=== PATIENT | female | born 1960 | race African-American/Black ===

== ENCOUNTER 2017-05-30 05:27 | Inpatient (IN) ==
[2017-05-30] MEDS ORDERED: SODIUM CHLORIDE 0.9% 1,000 ML IV STA (05:54)
[2017-05-30 06:02] LABS: Basophils # 0.1 10*3/uL (0.0-0.2); Basophils % 0.2 % (0.0-0.8); Hematocrit 38.6 VOL% (35.7-47.0); Hemoglobin 13.5 GM/DL (12.0-16.0); Immature Granulocytes % 0.7 %; Immature Granulocytes Absolute 0.14 #; Lymphocytes # 0.5 10*3/uL (1.4-4.0); Lymphocytes % 2.6 % (21.3-54.2); Mean Corpuscular Hemoglobin 34 PG (27-34); Mean Corpuscular Volume 98.2 FL (87-102); Mean Platelet Volume 10.3 FL (9.6-12.0); Monocytes # 1.4 10*3/uL (0.11-0.8); Monocytes % 6.7 % (1.7-12.7); Neutrophils # 18.4 10*3/uL (1.4-7.4); Neutrophils % 89.8 % (38.7-73.9); Platelet Count 209 T/CUMM (130-400); Red Blood Count 3.93 MC/CUMM (3.8-5.5); Red Cell Distribution Width 11.9 % (9.3-17.3); White Blood Count 20.5 T/CUMM (4-12)
[2017-05-30 06:05] LABS: Apearance,Urine Slightly Hazy (Clear); Bilirubin,Urine Negative (Negative); Blood, Urine Negative (Negative); Glucose,Urine (UA) 150 mg/dL (Negative); Ketones,Urine Negative (Negative); Mucus,Urine Occasional /LPF (Occasional); Nitrite,Urine Negative (Negative); Protein,Urine Negative; RBC,Urine 4 /HPF (0-4); Squamous Epithelial Cell,Urine Occasional /HPF (0-10); Urine Color Straw (Yellow); Urine Specific Gravity 1.011 (1.001-1.035); Urine Urobilinogen < 2.0 EU/DL (0.2-1.0); WBC,Urine 121 /HPF (0-6)
[2017-05-30] MEDS ORDERED: KETOROLAC 30 MG/1 ML VIAL IV STA (06:20)
[2017-05-30] MEDS ORDERED: ONDANSETRON 4 MG/2 ML VIAL IV STA (06:20)
[2017-05-30] MEDS ORDERED: HYDROmorphone 2 MG/1 ML VIAL IV STA (06:20)
[2017-05-30] MEDS ORDERED: ONDANSETRON 4 MG/2 ML VIAL ONE ×2 (06:23→14:26)
[2017-05-30] MEDS ORDERED: HYDROmorphone 2 MG/1 ML VIAL ONE (06:23)
[2017-05-30] MEDS ORDERED: KETOROLAC 30 MG/1 ML VIAL ONE ×2 (06:23→14:26)
[2017-05-30 06:25] LABS: Albumin 4.1 G/DL (3.4-5.0); Bilirubin,Total 0.7 MG/DL (0.2-1.0); Calcium 9.4 MG/DL (8.5-10.1); Osmolality,Calculated 280.7 MOS/KG (273-304); Potassium 4.1 MMOL/L (3.5-5.1); Total Protein 7.4 G/DL (6.4-8.3)
[2017-05-30] MEDS ORDERED: cefTRIAXone 1,000 MG in SODIUM CHLORIDE 0.9% 100 ML IV STA (07:11)
[2017-05-30] MEDS ORDERED: SODIUM CHLORIDE 0.9% 100 ML IV ONE (07:19)
[2017-05-30] MEDS ORDERED: cefTRIAXone 1,000 MG VIAL ONE (07:19)
[2017-05-30 08:02] LABS: Giant Platelets Few; Hypochromasia 1+; Lymphocytes 5 % (20-55); Ovalocytes Slight; Platelet Estimate Adequate; Segmented Neutrophils 88 % (50-85); Total Cells Counted 100
[2017-05-30 08:30] LABS: Apearance,Urine CLEAR (Clear); Bilirubin,Urine Negative (Negative); Blood, Urine Large mg/dL (Negative); Glucose,Urine (UA) 50 mg/dL (Negative); Ketones,Urine Negative (Negative); Mucus,Urine Occasional /LPF (Occasional); Nitrite,Urine Negative (Negative); Protein,Urine Negative; RBC,Urine 24 /HPF (0-4); Squamous Epithelial Cell,Urine Occasional /HPF (0-10); Urine Color Yellow (Yellow); Urine Urobilinogen < 2.0 EU/DL (0.2-1.0); WBC,Urine 11 /HPF (0-6)
[2017-05-30] MEDS ORDERED: LACTATED RINGERS 1,000 ML IV SCH ×2 (12:00→15:00)
[2017-05-30] MEDS ORDERED: MORPHINE 10 MG/1 ML VIAL IV PRN ×2 (12:14→15:35)
[2017-05-30] MEDS ORDERED: LEVOFLOXACIN 500 MG TABLET ONE (12:17)
[2017-05-30] MEDS ORDERED: LEVOFLOXACIN 500 MG TABLET PO ONE (12:21)
[2017-05-30] MEDS ORDERED: PROMETHAZINE 25 MG/1 ML VIAL IM PRN ×3 (14:15→15:35)
[2017-05-30] MEDS ORDERED: PROPOFOL 200 MG/20 ML VIAL IV ONE (14:25)
[2017-05-30] MEDS ORDERED: fentaNYL 100 MCG/2 ML VIAL ONE (14:25)
[2017-05-30] MEDS ORDERED: SEVOFLURANE 1 UNIT/15 MINUTE INH ONE (14:25)
[2017-05-30] MEDS ORDERED: MIDAZOLAM 2 MG/2 ML VIAL ONE (14:26)
[2017-05-30] MEDS ORDERED: SODIUM CHLORIDE 0.45% 1,000 ML IV SCH (14:30)
[2017-05-30] MEDS ORDERED: ONDANSETRON 4 MG/2 ML VIAL IV PRN ×2 (14:35→15:35)
[2017-05-30] MEDS ORDERED: HYDROmorphone 2 MG/1 ML VIAL IV PRN (14:35)
[2017-05-30] MEDS: SODIUM CHLORIDE 0.45% 1,000 ML IV SCH (17:28)
[2017-05-30] MEDS ORDERED: PIPERACILLIN/TAZOBACTAM 3,375 MG in SODIUM CHLORIDE 0.9% 100 ML IV SCH (18:30)
[2017-05-30] MEDS: ACETAMINOPHEN 325 MG TABLET PO PRN (21:00)
[2017-05-31] MEDS: PIPERACILLIN/TAZOBACTAM 3,375 MG in SODIUM CHLORIDE 0.9% 100 ML IV SCH ×2 (01:41→10:20)
[2017-05-31 05:05] LABS: Basophils # 0.1 10*3/uL (0.0-0.2); Basophils % 0.4 % (0.0-0.8); Eosinophils # 0.1 10*3/uL (0.0-0.87); Eosinophils % 0.6 % (0.00-10.9); Hematocrit 31.9 VOL% (35.7-47.0); Immature Granulocytes % 0.5 %; Immature Granulocytes Absolute 0.11 #; Lymphocytes # 1.1 10*3/uL (1.4-4.0); Lymphocytes % 5.1 % (21.3-54.2); Mean Corpuscular HGB Conc 34.5 GM/DL (32-36); Mean Corpuscular Hemoglobin 35 PG (27-34); Mean Platelet Volume 10.4 FL (9.6-12.0); Monocytes # 1.5 10*3/uL (0.11-0.8); Monocytes % 6.5 % (1.7-12.7); Neutrophils # 19.6 10*3/uL (1.4-7.4); Neutrophils % 86.9 % (38.7-73.9); Platelet Count 199 T/CUMM (130-400); Red Blood Count 3.19 MC/CUMM (3.8-5.5); Red Cell Distribution Width 12.5 % (9.3-17.3); White Blood Count 22.6 T/CUMM (4-12)
[2017-05-31 05:28] LABS: Calcium 8.2 MG/DL (8.5-10.1); Osmolality,Calculated 278.5 MOS/KG (273-304); Potassium 3.7 MMOL/L (3.5-5.1)
[2017-05-31 05:32] LABS: Hypochromasia 1+; Lymphocytes 3 % (20-55); Ovalocytes Slight; Platelet Estimate Adequate; Segmented Neutrophils 90 % (50-85); Total Cells Counted 100
[2017-05-31] MEDS: SODIUM CHLORIDE 0.45% 1,000 ML IV SCH ×4 (08:46→23:24)
[2017-05-31] MEDS ORDERED: amLODIPine 5 MG TABLET PO SCH (09:00)
[2017-05-31] MEDS: ESTRADIOL 2 MG TABLET PO SCH (09:06)
[2017-05-31] MEDS: LEVOFLOXACIN INJ 750 MG in PREMIX 1 EACH IV SCH (09:09)
[2017-05-31] MEDS: HYDROmorphone 2 MG/1 ML VIAL IV PRN (17:50)
[2017-06-01] MEDS: ACETAMINOPHEN 325 MG TABLET PO PRN (04:34)
[2017-06-01 06:38] LABS: Basophils % 0.3 % (0.0-0.8); Eosinophils # 0.1 10*3/uL (0.0-0.87); Eosinophils % 0.6 % (0.00-10.9); Hematocrit 31.6 VOL% (35.7-47.0); Hemoglobin 10.8 GM/DL (12.0-16.0); Immature Granulocytes % 0.4 %; Immature Granulocytes Absolute 0.05 #; Lymphocytes # 1.2 10*3/uL (1.4-4.0); Lymphocytes % 8.2 % (21.3-54.2); Mean Corpuscular HGB Conc 34.2 GM/DL (32-36); Mean Corpuscular Hemoglobin 34 PG (27-34); Mean Corpuscular Volume 100.3 FL (87-102); Mean Platelet Volume 10.6 FL (9.6-12.0); Monocytes # 1.3 10*3/uL (0.11-0.8); Monocytes % 9.3 % (1.7-12.7); Neutrophils # 11.6 10*3/uL (1.4-7.4); Neutrophils % 81.2 % (38.7-73.9); Platelet Count 180 T/CUMM (130-400); Red Blood Count 3.15 MC/CUMM (3.8-5.5); Red Cell Distribution Width 12.3 % (9.3-17.3); White Blood Count 14.2 T/CUMM (4-12)
[2017-06-01] MEDS: LEVOFLOXACIN INJ 750 MG in PREMIX 1 EACH IV SCH (08:57)
[2017-06-01] MEDS: ESTRADIOL 2 MG TABLET PO SCH (08:57)
[2017-06-01] MEDS: SODIUM CHLORIDE 0.45% 1,000 ML IV SCH ×2 (09:34→19:33)
[2017-06-01] MEDS: HYDROmorphone 2 MG/1 ML VIAL IV PRN (17:43)
[2017-06-02] MEDS: SODIUM CHLORIDE 0.45% 1,000 ML IV SCH (04:18)
[2017-06-02] MEDS: LEVOFLOXACIN INJ 750 MG in PREMIX 1 EACH IV SCH (09:07)
[2017-06-02] MEDS: ESTRADIOL 2 MG TABLET PO SCH (09:07)
[2017-06-02 12:20] VITALS: BP 119/74
== END 2017-06-02 13:58 | disposition home or self-care (01) | DRG 694 ==
LOC: N.ED 05:27 → N.EDINP 07:16 → N.4E 09:42
PROVIDERS: ADMIT Urology; ATTEND Urology